=== PATIENT | male | born 1960 | race Caucasian/White ===

== ENCOUNTER 2019-01-02 02:29 | Emergency (ER) | payer OTHER ==
[~2019-01-02] VITALS: Ht 193 cm; Wt 111.1 kg
[~2019-01-02 02:29] MED LIST: FLO4 PO; HYDROCHLOROTH12.5 M2 PO; HYDROCHLOROTHIA25 MG PO; MEDDP PO; MORPHINE SULFAT15 MG PO; PYR100 PO; ZOC10 PO
[2019-01-02 02:33] VITALS: Ht 193 cm; Wt 111.1 kg
[2019-01-02 06:30] VITALS: BP 172/91
== END 2019-01-02 06:30 | disposition home or self-care (01) ==
LOC: ED 02:29
DX: R30.0 Dysuria (principal); R10.9 Unspecified abdominal pain; E78.00 Pure hypercholesterolemia, unspecified; Z88.0 Allergy status to penicillin; Z88.5 Allergy status to narcotic agent; Z88.6 Allergy status to analgesic agent; Z88.8 Allergy status to other drugs, medicaments and biological substances; Z98.890 Other specified postprocedural states
CPT/HCPCS: J1200; J1885; J2270; J2405

== ENCOUNTER 2020-05-17 16:54 | Emergency (ER) | payer OTHER ==
[~2020-05-17] VITALS: Ht 193 cm; Wt 137.9 kg
[2020-05-17 16:56] VITALS: BP 151/82; Ht 193 cm; Wt 137.9 kg
== END 2020-05-17 18:24 | disposition home or self-care (01) ==
LOC: ED 16:54
DX: T20.27XA Burn of second degree of neck, initial encounter (principal); T22.20XA Burn of second degree of shoulder and upper limb, except wrist and hand, unspecified site, initial encounter; T22.252A Burn of second degree of left shoulder, initial encounter; T31.0 Burns involving less than 10% of body surface; E78.00 Pure hypercholesterolemia, unspecified; Z88.0 Allergy status to penicillin; Z88.5 Allergy status to narcotic agent; Z88.8 Allergy status to other drugs, medicaments and biological substances; X16.XXXA Contact with hot heating appliances, radiators and pipes, initial encounter; Y93.89 Activity, other specified; Y92.89 Other specified places as the place of occurrence of the external cause; Y99.8 Other external cause status
CPT/HCPCS: J1200; J1885; J2270; J7030